=== PATIENT | female | born 2000 | race Two or more races ===

== ENCOUNTER 2020-08-17 13:36 | Emergency (ER) | payer MEDICAID ==
[~2020-08-17] VITALS: Ht 154.9 cm; Wt 44.5 kg
[2020-08-17 13:43] VITALS: BP 121/74
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
[2020-08-17] MEDS ORDERED: ACETAMINOPHEN 500 MG TABLET ONE (15:55)
[2020-08-17] MEDS ORDERED: KETOROLAC 30 MG/1 ML ONE (15:55)
[2020-08-17] MEDS ORDERED: CYCLOBENZAPRINE 10 MG TABLET ONE ×2 (15:55→15:56)
[2020-08-17] MEDS ORDERED: CYCLOBENZAPRINE 10 MG TABLET PO ONE (16:00)
[2020-08-17] MEDS ORDERED: KETOROLAC 30 MG/1 ML IM ONE (16:00)
[2020-08-17] MEDS ORDERED: ACETAMINOPHEN 500 MG TABLET PO ONE (16:00)
--- NOTE | 2020-08-17 16:05 | NUR ---
pt is resting comfortably in the gurney. she has her mom and 2 kids at bedside. medicated per orders. The patient refused the flexeril because she has to drive herself and the kids home. no further needs. call light within reach.
--- NOTE | 2020-08-17 16:32 | NUR ---
Patient/Caregiver given discharge instructions and they have confirmed that they understand the instructions. Patient ambulatory with steady gait.
== END 2020-08-17 16:33 | disposition home or self-care (01) ==
LOC: ED 16:00
DX: S83.92XA Sprain of unspecified site of left knee, initial encounter (principal); R25.2 Cramp and spasm; R20.0 Anesthesia of skin; F17.210 Nicotine dependence, cigarettes, uncomplicated; Z88.0 Allergy status to penicillin; X58.XXXA Exposure to other specified factors, initial encounter; Y93.89 Activity, other specified; Y92.89 Other specified places as the place of occurrence of the external cause; Y99.8 Other external cause status
CPT/HCPCS: 73564; 96372; 99283; J1885

== ENCOUNTER 2020-10-08 05:42 | Emergency (ER) | payer MEDICAID ==
[~2020-10-08] VITALS: Ht 154.9 cm; Wt 46.0 kg
[2020-10-08 05:44] VITALS: BP 109/75
--- NOTE | 2020-10-08 07:12 | NUR ---
Patient given discharge instructions and they have confirmed that they understand the instructions. Patient ambulatory with steady gait.
== END 2020-10-08 07:13 | disposition home or self-care (01) ==
LOC: ED 07:05
DX: R20.2 Paresthesia of skin (principal); Z88.8 Allergy status to other drugs, medicaments and biological substances; Z88.0 Allergy status to penicillin
CPT/HCPCS: 99281